=== PATIENT | female | born 1970 | race Two or more races ===

== ENCOUNTER 2022-08-13 18:09 | Emergency (ER) | payer OTHER ==
[~2022-08-13] VITALS: Ht 157.5 cm; Wt 113.4 kg
== END 2022-08-14 01:10 | disposition home or self-care (01) ==
LOC: ER 18:09
DX: T67.5XXA Heat exhaustion, unspecified, initial encounter (principal); X58.XXXA Exposure to other specified factors, initial encounter; Y93.89 Activity, other specified; Y92.89 Other specified places as the place of occurrence of the external cause; Y99.8 Other external cause status; Z20.822 Contact with and (suspected) exposure to COVID-19